=== PATIENT | female | born 1940 | race Two or more races ===

== ENCOUNTER 2025-01-17 10:16 | Emergency (ER) | payer OTHER ==
[~2025-01-17] VITALS: Ht 157.5 cm; Wt 52.6 kg
[2025-01-17] MEDS ORDERED: KAPSPARGO SPRIN25 MG PO (10:52)
[2025-01-17] MEDS ORDERED: WELCHOL3.75 GM (10:53)
[2025-01-17] MEDS ORDERED: ZESTRIL2.5 MG (10:53)
[2025-01-17] MEDS ORDERED: CHILDREN'S ASPI81 MG (10:54)
[2025-01-17] MEDS ORDERED: AVAPRO75 MG PO (10:55)
[2025-01-17] MEDS ORDERED: PLAVIX75 MG (10:55)
== END 2025-01-17 13:24 ==
LOC: ER 10:16
DX: L02.91 Cutaneous abscess, unspecified (principal); I10 Essential (primary) hypertension; Z88.6 Allergy status to analgesic agent